=== PATIENT | male | born 1990 | race Caucasian/White ===

== ENCOUNTER 2020-09-01 07:10 | Emergency (ER) | payer OTHER ==
[~2020-09-01 07:10] MED LIST: MEDROL 4MG DOSEP4 MG PO; MOBIC15 MG PO; NORCO 5-325 TA1 EACH PO; ZOFRAN4 MG PO
[2020-09-01 07:53] LABS: BILIRUBIN NEGATIVE (NEGATIVE); BLOOD NEGATIVE Ery/uL (NEGATIVE); CLARITY CLEAR (CLEAR); COLOR YELLOW (YELLOW); GLUCOSE (U) NORMAL (NORMAL); LEUKOCYTES NEGATIVE Leu/uL (NEGATIVE); NITRITE NEGATIVE (NEGATIVE); PROTEIN NEGATIVE (NEGATIVE); UROBILINOGEN 0.2 mg/dL (0.2-1.0)
[2020-09-01 07:54] LABS: BASOPHIL 0.4 % (0-2); HCT 47.8 % (42.0-52.0); HGB 16.5 g/dl (13.2-18.0); LYMPHOCYTE 21.3 % (15-48); MCH 29.8 pg (25.0-31.0); MCHC 34.5 g/dL (32.0-36.0); MCV 86.3 fL (78.0-100.0); MONOCYTE 8.6 % (0-12); MPV 10.5 fL (6.0-9.5); NEUTROPHIL 66.3 % (41-80); NRBC 0; PLT 225 K/uL (150-400); RBC 5.54 M/uL (4.70-6.00); RDW 12.8 % (11.5-14.0); WBC 9.8 K/uL (4.0-10.5)
[2020-09-01 08:08] LABS: ALBUMIN 4.1 g/dL (3.4-5.0); BILIRUBIN - TOTAL 0.5 mg/dL (0.2-1.0); BUN/CREAT RATIO (CALC) 13.8 RATIO; CREATININE 0.8 mg/dL (0.67-1.17); GLOBULIN (CALCULATION) 3.1 g/dL; POTASSIUM 4.2 mmol/L (3.5-5.1); TOTAL PROTEIN 7.2 g/dL (6.4-8.2)
[2020-09-01] MEDS ORDERED: ZOFRAN4 M1 PO (08:20)
== END 2020-09-01 08:30 | disposition home or self-care (01) ==
LOC: FER 07:10
PROVIDERS: Emergency Medicine
DX: R10.9 Unspecified abdominal pain (principal); R11.2 Nausea with vomiting, unspecified; R63.0 Anorexia; F17.200 Nicotine dependence, unspecified, uncomplicated
CPT/HCPCS: 36415; 74022; 80053; 81003; 85025; J2405; J2765